=== PATIENT | male | born 1965 | race Caucasian/White ===

== ENCOUNTER 2018-12-24 08:09 | Emergency (ER) | payer OTHER, SELFPAY ==
[2018-12-24 08:16] VITALS: BP 180/88; PULSE 90; RESP 16; TEMP 36.9; O2SAT 94
[2018-12-24 08:17] VITALS: BP 180/88; PULSE 90; RESP 16; TEMP 36.9; O2SAT 94; BMI 41.5
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
== END 2018-12-24 08:45 | disposition home or self-care (01) ==
PROVIDERS: Emergency Provider Emergency Medicine
DX: S06.0X0A Concussion without loss of consciousness, initial encounter (principal); S16.1XXA Strain of muscle, fascia and tendon at neck level, initial encounter; V43.52XA Car driver injured in collision with other type car in traffic accident, initial encounter
CPT/HCPCS: 99282

== ENCOUNTER 2019-08-10 08:20 | Emergency (ER) | payer OTHER, SELFPAY ==
[2019-08-10 08:44] VITALS: BP 172/85; PULSE 100; RESP 14; TEMP 36.4; O2SAT 97
[2019-08-10 09:18] VITALS: BP 144/77; PULSE 88; RESP 18; O2SAT 99
--- NOTE | 2019-08-10 09:34 | PC.NURSE ---
diabetic patient w/ recent high glucose (> 400) wound base of right foot that is > 1.5 cm deep, black center.
--- NOTE | 2019-08-10 09:39 | DI.RAD.S_ITS ---
PROCEDURE: XR FOOT RT MIN 3V INDICATIONS: wound bottom of right foot w/ deep center. Diabetic TECHNIQUE: 3 views of the foot were acquired. COMPARISON: None. FINDINGS: Bones: No fractures or dislocations. No suspicious bony lesions. No plain film evidence of osteomyelitis. Soft tissues: No tibiotalar joint effusion. Achilles tendon appears normal. Plantar ulcer at the level of the PIP joints seen on lateral view. IMPRESSION: Plantar ulcer. No evidence acute bony abnormality of the right foot. If clinical suspicion and/or symptoms persist, further assessment with repeat plain films, or advanced imaging (e.g., CT, MRI, or bone scan) may be helpful for further assessment. Dictated by: Artem Gee M.D. on 08/10/2019 at 9:53 Approved by: Artem Gee M.D. on 08/10/2019 at 9:54
[2019-08-10 09:48] LABS: Add Manual Diff / Slide Review NO; Basophils Absolute Auto 100 /uL (0-100); Basophils Percent Auto 0.8 % (0-2); Eosinophils Absolute Auto 100 /uL (0-450); Eosinophils Percent Auto 0.6 % (2-4); Hematocrit 39.6 % (41-53); Hemoglobin 13.3 g/dL (13.5-17.5); Lymphocytes Absolute Auto 1300 /uL (1100-4500); Lymphocytes Percent Auto 10.8 % (25-40); Mean Corpuscular HGB Conc 33.6 % (30-36); Mean Corpuscular Hemoglobin 30.3 PG (26-34); Mean Corpuscular Volume 90.2 fL (80-100); Monocytes Absolute Auto 900 /uL (0-900); Monocytes Percent Auto 7.4 % (3-14); Neutrophils Absolute Auto 9800 /uL (1500-7000); Neutrophils Percent Auto 80.4 % (50-75); Platelet Count 318 X10^3/uL (150-400); Red Blood Cell Count 4.39 X10^6/uL (4.5-5.9); Red Cell Distribution Width 12.4 % (11.6-14.8); White Blood Cell Count 12.2 X10^3/uL (4.5-11.0)
[2019-08-10 09:58] LABS: Prothrombin Time 11.2 SECONDS (10.1-12.7)
[2019-08-10 10:01] LABS: PTT Partial Thromboplastin Tim 35 SECONDS (26.4-36.2)
[2019-08-10 10:04] LABS: Lactate (Lactic Acid) 1.5 mmol/L (0.7-2.1)
[2019-08-10 10:05] LABS: Alanine Aminotransferase 31 IU/L (<50); Albumin 4.5 g/dL (3.5-5.0); Albumin Globulin Ratio 1.2 (1.0-2.8); Alkaline Phosphatase 96 U/L (38-126); Aspartate Aminotransferase 30 IU/L (17-59); BUN Creatinine Ratio 29.5 (6-22); Bilirubin Total 0.4 mg/dL (0.2-1.3); Blood Urea Nitrogen 38 mg/dL (9-20); Calcium 10.3 mg/dL (8.4-10.2); Carbon Dioxide 24 mmol/L (22-32); Chloride 95 mmol/L (98-107); Erythrocyte Sedimentation Rate 25 MM/HR (0-15); Estimated Glomerular Filt Rate 58.5 mL/min (>60); Globulin 3.9 g/dL (1.7-4.1); Glucose 436 mg/dL (70-100); HEMOLYSIS < 15 (0-50); Lipase 244 U/L (23-300); Sodium 132 mmol/L (137-145); Total Protein 8.4 g/dL (6.3-8.2)
[2019-08-10 10:06] LABS: Potassium 5.5 mmol/L (3.4-5.1)
[2019-08-10 10:21] LABS: Procalcitonin 0.07 ng/mL (<0.5)
[2019-08-10 10:40] LABS: C-Reactive Protein Quant 5.2 mg/dL (<1.0)
--- NOTE | 2019-08-10 11:38 | ED.SKABFB ---
HPI - Skin/Abscess/Foreign Bdy General Chief complaint: Skin/Abscess/Foreign Body Stated complaint: RT FOOT/ BLISTER/PAIN DIABETIC Time Seen by Provider: 08/10/19 09:44 Source: patient Mode of arrival: Ambulatory History of Present Illness HPI narrative: CC: Right foot ulcer HPI: The patient is a 53-year-old male who is a type 2 diabetic. He has an ulcer on the bottom of his right foot over the area of the metatarsophalangeal joint of his 2nd toe that is a deep ulcer. The patient stated that he injured the foot and developed a blister in this area starting in mid May when he was visiting [employer] and was walking 10 miles a day. Since then he has developed swelling of the area of the foot with increased drainage and an ulcer. The patient has mild neuropathy with decreased sensation. He has not had significant pain and discomfort. He has had some local swelling. He states that he has had some. Lint drainage and foul odor. He has never before had an ulcer like this on the bottom of his foot. He admits to history of hypertension diabetes mellitus but denies a history of asthma COPD or myocardial infarction. Is a former smoker and currently does not smoke cigarettes. He does chew tobacco and rarely but occasionally drinks alcohol. He does not use any drugs or marijuana. Related Data Home Medications Medication Instructions Recorded Confirmed glipizide 10 mg PO BID 08/10/19 08/10/19 hydrochlorothiazide 25 mg PO BEDTIME 08/10/19 08/10/19 lisinopril 20 mg PO BEDTIME 08/10/19 08/10/19 metformin 1,000 mg PO BID 08/10/19 08/10/19 Previous Rx's Medication Instructions Recorded doxycycline hyclate 100 mg PO BID #14 tab 08/10/19 ibuprofen 600 mg PO QID PRN #25 tab 08/10/19 Allergies Allergy/AdvReac Type Severity Reaction Status Date / Time hydrocodone [HYDROCODONE] AdvReac Intermediate NAUSEA/VOMI Verified 08/10/19 09:34 TING TEA EXTRACT Allergy Severe VOMITING Uncoded 12/24/18 08:17 Review of Systems Review of Systems Narrative: REVIEW OF SYSTEMS: CONSTITUTIONAL: The patient denies any fever chills or sweats. NEUROLOGICAL: He has had no headaches paresthesias paresis or paralysis. He has had some decreased sensation in his right foot. EENT: He denies any nasal congestion sore throat or dysphagia as well as any diplopia or change in vision. CARDIO-PULMONARY: He denies any chest pain cough shortness of breath palpitations or dizziness. GASTROINTESTINAL: Denies any significant abdominal pain cramps nausea vomiting diarrhea change in bowel habits. GENITAL URINARY: He denies any urinary symptoms. Patient History Medical History Diabetes (Acute) Hypertension (Acute) Social History marital status: lives independently: Yes tobacco type: smokeless tobacco Substance Use Type: does not use Exam Narrative Exam Narrative: PHYSICAL EXAM: CONSTITUTIONAL: Awake, Alert, Oriented, Coherent, Cooperative in NAD. HEAD: AT/NC EENT: PERRL, FROM of eyes,. NECK: Supple, no obvious JVD, Trachea is midline without stridor, no palpable LN. SPINE: Palpationof the cervical, Thoracic, Lumbar or Sacral spine reveals no gross deformity or tenderness. No CVA tenderness. THORAX: No deformity, retractions, chest wall tenderness. LUNGS: Clear, symmetrical breath sounds without respiratory distress. HEART: Normal heart tones, regular rhythm and rate without murmur. ABDOMEN: Soft, non-tender, normal bowel sounds without guarding, rebound, rigidity or palpable mass. EXTREMITIES: The patient has a quarter-size ulcer that looks like a crater over the plantar surface of the right foot over the metatarsophalangeal joint of the 2nd toe. There is some. Went macerated tissue at the base of the ulcer. The margins of the ulcer are moist and hope white to without any erythema or pustular drainage. The rest of the foot is not significantly swollen. The patient has good capillary refill in all of his toes and the dorsalis pedis pulse is 1 +. SKIN: No other rash, bruising, petechiae or purpura noted. NEURO: Awake, alert, oriented, conversive, cranial nerves II-XII are symmetrical , moves all 4 extremities and is ambulatory. Initial Vital Signs Initial Vital Signs: Vital Signs Temperature 97.6 F 08/10/19 08:44 Pulse Rate 100 H 08/10/19 08:44 Respiratory Rate 14 08/10/19 08:44 Blood Pressure 172/85 H 08/10/19 08:44 Pulse Oximetry 97 05/12/20 08:44 Course Course Course Narrative: 1138: X-rays of the foot reveals no fracture malalignment arm no evidence of osteomyelitis. The patient will need to be seen and evaluated by a material distributor for continued arm debridement and evaluation of the foot. The patient will be placed on an antibiotic. Orders Ordered: Discontinued Medications Doxycycline Hyclate (Vibramycin) 100 mg PO NOW ONE Stop: 08/10/19 11:43 Last Admin: 08/10/19 11:48 Dose: 100 mg Documented by: MARGARITO Sodium Chloride (Normal Saline 0.9%) 1,000 mls @ 1,000 mls/hr IV BOLUS ONE Stop: 08/10/19 12:51 Last Infusion: 08/10/19 13:08 Dose: 0 mls/hr Documented by: Admin: 08/10/19 11:58 Dose: 1,000 mls/hr Documented by: MARGARITO Vital Signs Vital signs: Vital Signs - 8 hr 08/10/19 12:04 08/10/19 13:14 Pulse Rate 87 70 Respiratory Rate 16 16 Blood Pressure [Right Arm] 125/72 140/72 Pulse Oximetry 100 99 MDM - Skin/Abscess/Foreign Bdy Lab Data Result diagrams: 08/10/19 09:30 08/10/19 09:30 Labs: Lab Results 08/10/19 08/10/19 08/10/19 Range/Units 09:30 09:30 09:30 WBC 12.2 H (4.5-11.0) X10^3/uL RBC 4.39 L (4.5-5.9) X10^6/uL Hgb 13.3 L (13.5-17.5) g/dL Hct 39.6 L (41-53) % MCV 90.2 (80-100) fL MCH 30.3 (26-34) PG MCHC 33.6 (30-36) % RDW 12.4 (11.6-14.8) % Plt Count 318 (150-400) X10^3/uL Neut % (Auto) 80.4 H (50-75) % Lymph % (Auto) 10.8 L (25-40) % Edgar % (Auto) 7.4 (3-14) % Eos % (Auto) 0.6 L (2-4) % Baso % (Auto) 0.8 (0-2) % Neut # (Auto) 9800 H (3270-3221) /uL Lymph # (Auto) 1300 (7292-5360) /uL Edgar # (Auto) 900 (0-900) /uL Eos # (Auto) 100 (0-450) /uL Baso # (Auto) 100 (0-100) /uL ESR (0-15) MM/HR PT 11.2 (10.1-12.7) SECONDS INR 1.0 (0.9-1.3) APTT 35 (26.4-36.2) SECONDS Sodium (137-145) mmol/L Potassium (3.4-5.1) mmol/L Chloride (98-107) mmol/L Carbon Dioxide (22-32) mmol/L BUN (9-20) mg/dL Creatinine (0.66-1.25) mg/dL Estimated GFR (>60) mL/min BUN/Creatinine Ratio (6-22) Glucose (70-100) mg/dL Lactate (0.7-2.1) mmol/L Calcium (8.4-10.2) mg/dL Total Bilirubin (0.2-1.3) mg/dL AST (17-59) IU/L ALT (<50) IU/L Alkaline Phosphatase (38-126) U/L C-Reactive Protein (<1.0) mg/dL Total Protein (6.3-8.2) g/dL Albumin (3.5-5.0) g/dL Globulin (1.7-4.1) g/dL Albumin/Globulin Ratio (1.0-2.8) Lipase (23-300) U/L Procalcitonin 0.07 (<0.5) ng/mL 08/10/19 08/10/19 08/10/19 Range/Units 09:30 09:30 09:30 WBC (4.5-11.0) X10^3/uL RBC (4.5-5.9) X10^6/uL Hgb (13.5-17.5) g/dL Hct (41-53) % MCV (80-100) fL MCH (26-34) PG MCHC (30-36) % RDW (11.6-14.8) % Plt Count (150-400) X10^3/uL Neut % (Auto) (50-75) % Lymph % (Auto) (25-40) % Edgar % (Auto) (3-14) % Eos % (Auto) (2-4) % Baso % (Auto) (0-2) % Neut # (Auto) (7300-2242) /uL Lymph # (Auto) (6951-2682) /uL Edgar # (Auto) (0-900) /uL Eos # (Auto) (0-450) /uL Baso # (Auto) (0-100) /uL ESR 25 H (0-15) MM/HR PT (10.1-12.7) SECONDS INR (0.9-1.3) APTT (26.4-36.2) SECONDS Sodium 132 L (137-145) mmol/L Potassium 5.5 H (3.4-5.1) mmol/L Chloride 95 L (98-107) mmol/L Carbon Dioxide 24 (22-32) mmol/L BUN 38 H (9-20) mg/dL Creatinine 1.29 H (0.66-1.25) mg/dL Estimated GFR 58.5 L (>60) mL/min BUN/Creatinine Ratio 29.5 H (6-22) Glucose 436 H (70-100) mg/dL Lactate 1.5 (0.7-2.1) mmol/L Calcium 10.3 H (8.4-10.2) mg/dL Total Bilirubin 0.4 (0.2-1.3) mg/dL AST 30 (17-59) IU/L ALT 31 (<50) IU/L Alkaline Phosphatase 96 (38-126) U/L C-Reactive Protein (<1.0) mg/dL Total Protein 8.4 H (6.3-8.2) g/dL Albumin 4.5 (3.5-5.0) g/dL Globulin 3.9 (1.7-4.1) g/dL Albumin/Globulin Ratio 1.2 (1.0-2.8) Lipase 244 (23-300) U/L Procalcitonin (<0.5) ng/mL 08/10/19 Range/Units 09:30 WBC (4.5-11.0) X10^3/uL RBC (4.5-5.9) X10^6/uL Hgb (13.5-17.5) g/dL Hct (41-53) % MCV (80-100) fL MCH (26-34) PG MCHC (30-36) % RDW (11.6-14.8) % Plt Count (150-400) X10^3/uL Neut % (Auto) (50-75) % Lymph % (Auto) (25-40) % Edgar % (Auto) (3-14) % Eos % (Auto) (2-4) % Baso % (Auto) (0-2) % Neut # (Auto) (1961-7512) /uL Lymph # (Auto) (4691-2745) /uL Edgar # (Auto) (0-900) /uL Eos # (Auto) (0-450) /uL Baso # (Auto) (0-100) /uL ESR (0-15) MM/HR PT (10.1-12.7) SECONDS INR (0.9-1.3) APTT (26.4-36.2) SECONDS Sodium (137-145) mmol/L Potassium (3.4-5.1) mmol/L Chloride (98-107) mmol/L Carbon Dioxide (22-32) mmol/L BUN (9-20) mg/dL Creatinine (0.66-1.25) mg/dL Estimated GFR (>60) mL/min BUN/Creatinine Ratio (6-22) Glucose (70-100) mg/dL Lactate (0.7-2.1) mmol/L Calcium (8.4-10.2) mg/dL Total Bilirubin (0.2-1.3) mg/dL AST (17-59) IU/L ALT (<50) IU/L Alkaline Phosphatase (38-126) U/L C-Reactive Protein 5.2 H (<1.0) mg/dL Total Protein (6.3-8.2) g/dL Albumin (3.5-5.0) g/dL Globulin (1.7-4.1) g/dL Albumin/Globulin Ratio (1.0-2.8) Lipase (23-300) U/L Procalcitonin (<0.5) ng/mL Discharge Plan Departure Patient Disposition: Home Clinical Impression: Hyperglycemia Diabetic foot ulcer Qualifiers: Diabetic foot ulcer location: midfoot Diabetes mellitus type: type 2 Laterality: right Non-pressure ulcer stage: with fat layer exposed Qualified Code(s): E11.621 - Type 2 diabetes mellitus with foot ulcer Discharge Date/Time: 08/10/19 13:16 Instructions: DI for Cellulitis -- Adult, DI for Diabetic Foot Ulcer, DI for Hyperglycemia -- Adult, DI for Wound Infection Activity Restrictions/Additional Instructions: 1. You need to follow-up with your primary care physician. Your medications may need to be changed and you may need to be placed on insulin. Your blood sugar is running in the 400 range which will delay healing. 2. You need to follow-up with the material distributor Dr. luis gillette as referred to evaluate her foot ulcer. 3. You currently need to wash your foot in running water and soap pat dry and change the dressing as shown by the nurse. Until you can be seen by your material distributor and he decide how he wants to bandaging care for your foot. If the foot becomes progressively more swollen, red, hot, or you develop a fever you need to return to the emergency department. 4. For pain and discomfort take ibuprofen 600 mg every 6 hours for pain and discomfort. Take the antibiotic doxycycline twice a day as prescribed. Prescriptions: New ibuprofen 600 mg tablet 600 mg PO QID PRN (Reason: pain) Qty: 25 RF: 0 doxycycline hyclate 100 mg tablet 100 mg PO BID Qty: 14 RF: 0 No Action metformin 500 mg tablet 1,000 mg PO BID RF: 0 lisinopril 20 mg tablet 20 mg PO BEDTIME RF: 0 glipizide 10 mg tablet 10 mg PO BID RF: 0 hydrochlorothiazide 25 mg tablet 25 mg PO BEDTIME RF: 0 Referrals: Mj Nobles MD [Primary Care Provider] - Chet Qiu DPM [Physician] - (diabetic foot Ulcer)
[2019-08-10] MEDS: DOXYCYCLINE HYCLATE 100 MG TABLET PO (11:48)
[2019-08-10] MEDS: SODIUM CHLORIDE 0.9% 1,000 ML 1000 ML IV (11:58)
[2019-08-10 12:04] VITALS: BP 125/72; PULSE 87; RESP 16; O2SAT 100
[2019-08-10 13:14] VITALS: BP 140/72; PULSE 70; RESP 16; O2SAT 99
== END 2019-08-10 13:16 | disposition home or self-care (01) ==
PROVIDERS: Emergency Provider Emergency Medicine; PCP Internal Medicine
DX: E11.65 Type 2 diabetes mellitus with hyperglycemia (principal); E11.621 Type 2 diabetes mellitus with foot ulcer; I10 Essential (primary) hypertension
CPT/HCPCS: 36415; 73630; 80053; 83605; 83690; 84145; 85025; 85610; 85651; 85730; 86140; 87070; 87077; 87147; 87205; 96360; 99284

== ENCOUNTER → 2019-08-25 12:11 | Outpatient (CLI) | payer OTHER, SELFPAY | PROVIDERS: PCP Internal Medicine; Referring Provider Podiatrist; Visit Provider Family Medicine | DX: E11.621 Type 2 diabetes mellitus with foot ulcer (principal); L97.511 Non-pressure chronic ulcer of other part of right foot limited to breakdown of skin; E11.40 Type 2 diabetes mellitus with diabetic neuropathy, unspecified | CPT/HCPCS: 11042; 73630; 87070; 87075; 87205; 99203; 99214 ==

== ENCOUNTER → 2019-08-25 12:46 | Outpatient (CLI) | payer OTHER, SELFPAY ==
--- NOTE | 2019-08-25 | DI.RAD.S_ITS ---
PROCEDURE: XR FOOT RT MIN 3V INDICATIONS: right foot ulcer TECHNIQUE: 3 views of the foot were acquired. COMPARISON: [facility], , XR FOOT RT MIN 3V, 08/10/2019, 9:43. FINDINGS: Bones: No fractures or dislocations. No suspicious bony lesions. Soft tissues: No tibiotalar joint effusion. Achilles tendon appears normal. IMPRESSION: No suspicious bony lesions visualized. Although no bony erosions are identified, plain film radiography is relatively insensitive in the acute phases of osteomyelitis and may not demonstrate radiographic changes for 15 days. If acute osteomyelitis is of clinical concern, nuclear medicine regional bone scan or MRI is recommended. Dictated by: Lillian Nicholson M.D. on 08/25/2019 at 17:10 Approved by: Lillian Nicholson M.D. on 08/25/2019 at 17:10
== END ==
PROVIDERS: PCP Internal Medicine; Referring Provider Family Medicine; Visit Provider Family Medicine
DX: E11.621 Type 2 diabetes mellitus with foot ulcer (principal); L97.511 Non-pressure chronic ulcer of other part of right foot limited to breakdown of skin
CPT/HCPCS: 73630

== ENCOUNTER → 2019-08-30 15:32 | Outpatient (CLI) | payer OTHER, SELFPAY | PROVIDERS: PCP Internal Medicine; Referring Provider Internal Medicine; Visit Provider Family Medicine | DX: E11.621 Type 2 diabetes mellitus with foot ulcer (principal); L97.515 Non-pressure chronic ulcer of other part of right foot with muscle involvement without evidence of necrosis; E11.40 Type 2 diabetes mellitus with diabetic neuropathy, unspecified | CPT/HCPCS: 11042 ==

== ENCOUNTER → 2019-09-06 13:59 | Outpatient (CLI) | payer OTHER, SELFPAY | PROVIDERS: PCP Internal Medicine; Referring Provider Internal Medicine; Visit Provider Family Medicine | DX: E11.621 Type 2 diabetes mellitus with foot ulcer (principal); L97.515 Non-pressure chronic ulcer of other part of right foot with muscle involvement without evidence of necrosis; E11.40 Type 2 diabetes mellitus with diabetic neuropathy, unspecified | CPT/HCPCS: 11042; 87070; 87075; 87077; 87147; 87186; 87205 ==

== ENCOUNTER → 2019-09-13 09:26 | Outpatient (CLI) | payer OTHER, SELFPAY | PROVIDERS: PCP Internal Medicine; Referring Provider Internal Medicine; Visit Provider Family Medicine | DX: E11.621 Type 2 diabetes mellitus with foot ulcer (principal); L97.511 Non-pressure chronic ulcer of other part of right foot limited to breakdown of skin; E11.40 Type 2 diabetes mellitus with diabetic neuropathy, unspecified; B95.7 Other staphylococcus as the cause of diseases classified elsewhere; B95.1 Streptococcus, group B, as the cause of diseases classified elsewhere; L08.9 Local infection of the skin and subcutaneous tissue, unspecified | CPT/HCPCS: 11042; 99214 ==

== ENCOUNTER → 2019-09-20 14:36 | Outpatient (CLI) | payer OTHER, SELFPAY | PROVIDERS: PCP Internal Medicine; Referring Provider Internal Medicine; Visit Provider Family Medicine | DX: E11.621 Type 2 diabetes mellitus with foot ulcer (principal); L97.511 Non-pressure chronic ulcer of other part of right foot limited to breakdown of skin | CPT/HCPCS: 11042 ==

== ENCOUNTER → 2019-09-27 15:03 | Outpatient (CLI) | payer OTHER, SELFPAY | PROVIDERS: PCP Internal Medicine; Referring Provider Internal Medicine; Visit Provider Family Medicine | DX: E11.621 Type 2 diabetes mellitus with foot ulcer (principal); L97.512 Non-pressure chronic ulcer of other part of right foot with fat layer exposed | CPT/HCPCS: 11042 ==

== ENCOUNTER → 2019-10-04 14:44 | Outpatient (CLI) | payer OTHER, SELFPAY | PROVIDERS: PCP Internal Medicine; Referring Provider Internal Medicine; Visit Provider Family Medicine | DX: E11.621 Type 2 diabetes mellitus with foot ulcer (principal); L97.512 Non-pressure chronic ulcer of other part of right foot with fat layer exposed | CPT/HCPCS: 11042; 99213 ==

== ENCOUNTER → 2019-10-11 15:57 | Outpatient (CLI) | payer OTHER, SELFPAY | PROVIDERS: PCP Internal Medicine; Referring Provider Internal Medicine; Visit Provider Family Medicine | DX: E11.621 Type 2 diabetes mellitus with foot ulcer (principal); L97.512 Non-pressure chronic ulcer of other part of right foot with fat layer exposed | CPT/HCPCS: 15275; Q4110 ==

== ENCOUNTER → 2019-10-18 14:34 | Outpatient (CLI) | payer OTHER, SELFPAY | PROVIDERS: PCP Internal Medicine; Referring Provider Internal Medicine; Visit Provider Family Medicine | DX: E11.621 Type 2 diabetes mellitus with foot ulcer (principal); L97.511 Non-pressure chronic ulcer of other part of right foot limited to breakdown of skin | CPT/HCPCS: 15275; Q4137 ==

== ENCOUNTER → 2019-10-25 11:43 | Outpatient (CLI) | payer OTHER, SELFPAY | PROVIDERS: PCP Internal Medicine; Referring Provider Internal Medicine; Visit Provider Family Medicine | DX: E11.621 Type 2 diabetes mellitus with foot ulcer (principal); L97.511 Non-pressure chronic ulcer of other part of right foot limited to breakdown of skin | CPT/HCPCS: 97597; 99213 ==

== ENCOUNTER → 2019-11-01 15:08 | Outpatient (CLI) | payer OTHER, SELFPAY | PROVIDERS: PCP Internal Medicine; Referring Provider Internal Medicine; Visit Provider Family Medicine | DX: E11.43 Type 2 diabetes mellitus with diabetic autonomic (poly)neuropathy (principal); Z48.01 Encounter for change or removal of surgical wound dressing | CPT/HCPCS: 99212; 99213 ==

== ENCOUNTER 2023-04-27 13:56 | Emergency (ER) | payer OTHER, SELFPAY ==
[2023-04-27 14:04] VITALS: BP 118/72; PULSE 74; RESP 18; TEMP 36.6; O2SAT 97; BMI 40.4
--- NOTE | 2023-04-27 14:58 | ED.WOUNDLAC ---
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 Patient was using a automatic monty grinding a piece of metal with a metal got caught and drags his left hand into the monty. Patient has extensive wounds to the left knuckles. Full flexion-extension of the fingers and hands. Tetanus is not up-to-date. Related Data Home Medications Medication Instructions Recorded Confirmed glipizide 10 mg tablet 10 mg PO BID 08/10/19 08/10/19 hydrochlorothiazide 25 mg tablet 25 mg PO BEDTIME 08/10/19 08/10/19 lisinopril 20 mg tablet 20 mg PO BEDTIME 08/10/19 08/10/19 metformin 500 mg tablet 1,000 mg PO BID 08/10/19 08/10/19 Previous Rx's Medication Instructions Recorded doxycycline hyclate 100 mg tablet 100 mg PO BID #14 tabs 08/10/19 ibuprofen 600 mg tablet 600 mg PO QID PRN pain #25 tabs 08/10/19 cephalexin 500 mg capsule 500 mg PO QID #28 caps 04/27/23 Allergies Allergy/AdvReac Type Severity Reaction Status Date / Time hydrocodone [HYDROCODONE] AdvReac Intermediate NAUSEA/VOMI Verified 04/27/23 14:11 TING TEA EXTRACT Allergy Severe VOMITING Uncoded 12/24/18 08:17 Review of Systems <Enrique Xiao PA-C - Last Filed: 04/27/23 16:32> Review of Systems Narrative: GENERAL: Denies chills, fatigue, malaise, fever, sweats. HEENT: Denies sinus pain, ear pain, sore throat, difficulty swallowing, dizziness. RESPIRATORY: Denies dyspnea, cough, wheezing, hemoptysis, sputum. CARDIOVASCULAR: Denies chest pain, palpitations, orthopnea, edema, GASTROINTESTINAL: Denies nausea, vomiting, abdominal pain, diarrhea, constipation, melena. : Denies dysuria, frequency, incontinence, hematuria, urinary retention. MUSCULOSKELETAL: denies weakness, joint pain, or bony pain SKIN: Left finger and hand wounds NEUROLOGIC: Denies weakness, headache, numbness, change in speech, confusion, seizures, incoordination. PSYCHIATRIC: No concerning psychosocial issues. 12 point review of systems is negative except for those stated above Patient History <Enrique Xiao PA-C - Last Filed: 04/27/23 16:32> Medical History (Updated 04/27/23 @ 16:31 by Enrique Xiao PA-C) Hypertension Diabetes Social History marital status: lives independently: Yes Smoking Status: Never smoker Smoking Status: Never smoker tobacco type: smokeless tobacco alcohol intake frequency: a few times a week Substance Use Type: does not use Exam <Enrique Xiao PA-C - Last Filed: 04/27/23 16:32> Narrative Exam Narrative: GENERAL: Well-developed patient, in mild distress. HEAD: Atraumatic. Normocephalic. EYES: Pupils equal round and reactive. Extraocular motions intact. No scleral icterus. No injection or drainage. ENT: Nose without bleeding, purulent drainage. Throat without erythema, tonsillar hypertrophy or exudate. Airway patent. NECK: Trachea midline. Non tender EXTREMITIES: No edema or joint tenderness. Full range of motion of the fingers and hand. No tenderness to palpation to any of the bony areas of the hand. NEURO: AOx3. SKIN: 2 cm Laceration to the PIP joint of the left 3rd digit. 2.5 cm Laceration to the palmar aspect of the pinky as well. Wounds to multiple areas of the knuckles and hand. Initial Vital Signs Initial Vital Signs: Vital Signs Temperature 97.9 F 04/27/23 14:04 Pulse Rate 74 04/27/23 14:04 Respiratory Rate 18 04/27/23 14:04 Blood Pressure 118/72 04/27/23 14:04 Pulse Oximetry 97 04/27/23 14:04 Oxygen Delivery Method Room Air 04/27/23 14:04 <Ceasar Brambila DO - Last Filed: 04/27/23 16:59> Initial Vital Signs Initial Vital Signs: Vital Signs Temperature 97.9 F 04/27/23 14:04 Pulse Rate 74 04/27/23 14:04 Respiratory Rate 18 04/27/23 14:04 Blood Pressure 118/72 04/27/23 14:04 Pulse Oximetry 97 04/27/23 14:04 Oxygen Delivery Method Room Air 04/27/23 14:04 Procedures <Enrique Xiao PA-C - Last Filed: 04/27/23 16:32> Laceration Repair Laceration 1: Time of procedure: 16:25 Site: other (L 3rd finger) Side (If applicable): left Size (cm): 2 Description: linear Depth: simple, single layer Local Anesthetic: lidocaine 1% and with epi Amount of anesthesia used (mL): 4 Pre-repair: wound explored and irrigated extensively Skin layer closed with: nylon Skin layer suture size: 5-0 Number of sutures: 3 Technique: simple, interrupted Laceration 2: Time of procedure: 16:27 Site: hand (L 5th digit ) Side (If applicable): left Size (cm): 2.5 Description: linear Depth: simple, single layer Local Anesthetic: lidocaine 1% and with epi Amount of anesthesia used (mL): 4 Pre-repair: wound explored and irrigated extensively Skin layer closed with: nylon Skin layer suture size: 5-0 Number of sutures: 4 Technique: simple, interrupted Course <RICARDO Cruz Last Filed: 04/27/23 16:32> Orders Ordered: Discontinued Medications Diphtheria/Tetanus/Acell Pertussis (Tet,Diph,Pertuss(Acell),Vac/Pf 0.5 Ml Syringe) 0.5 ml IM .ONCE ONE Stop: 04/27/23 14:13 Last Admin: 04/27/23 15:38 Dose: 0.5 ml Documented By: RLS Vital Signs Vital signs: Vital Signs - 8 hr 04/27/23 14:04 04/27/23 16:38 Temperature 97.9 F Pulse Rate 74 75 Respiratory Rate 18 18 Blood Pressure 118/72 140/67 Pulse Oximetry 97 99 Oxygen Delivery Method Room Air Room Air <Ceasar Brambila DO - Last Filed: 04/27/23 16:59> Orders Ordered: Discontinued Medications Diphtheria/Tetanus/Acell Pertussis (Tet,Diph,Pertuss(Acell),Vac/Pf 0.5 Ml Syringe) 0.5 ml IM .ONCE ONE Stop: 04/27/23 14:13 Last Admin: 04/27/23 15:38 Dose: 0.5 ml Documented By: RLS Vital Signs Vital signs: Vital Signs - 8 hr 04/27/23 14:04 04/27/23 16:38 Temperature 97.9 F Pulse Rate 74 75 Respiratory Rate 18 18 Blood Pressure 118/72 140/67 Pulse Oximetry 97 99 Oxygen Delivery Method Room Air Room Air MDM - Wound/Laceration <Enrique Xiao PA-C - Last Filed: 04/27/23 16:32> [facility] Narrative Medical decision making narrative: ED course: This is a 57-year-old male presents to the emergency department due to a left hand injury. Patient declined x-rays although he did the note that he did not have any tenderness to palpation surrounding any joints in the hand. Patient had 2 lacerations to his fingers that needed suture repair which was done so without complications. He would full range of motion to all his fingers and hands and low concern for any kind of tendon injury. The remaining of the wounds were dressed using Xeroform and dry gauze. 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 CC: Left hand injury Complicating co-morbidities: Diabetes Data collected from: Previous notes Medical records reviewed: Patient was last seen here 3-1/2 years ago due to a diabetic foot ulcer. History of diabetes, hypertension, Differential considered, but not limited to: Fracture, tendon injury, soft tissue injury Exam documented above, pertinent findings include: No decreased range of motion to the fingers or hands Lab Test results independently reviewed as above. Pertinent findings: None obtained Imaging studies independently reviewed: None obtained Scores Used: None MIPS Elements: None Consultations: None Treatments: Sutures and laceration repair Re-evaluations: None Discussion: Discussed plan with the patient was comfortable with the plan Diagnosis: Left hand injury Disposition: see below, along with detailed discharge instructions that have been reviewed with patient as well as indications for ED re-evaluation and additional outpatient follow up Discharge Plan Departure Patient Disposition: Home Clinical Impression: Injury of hand, left Instructions: DI for Laceration Repair Activity Restrictions/Additional Instructions: Thank you for coming to the [facility] Emergency Department today. I am glad that we are able to close up the wounds. Please take the oral antibiotics to avoid any infections. Please continue to monitor the wounds for any signs of infection. Sutures should be removed in 7-10 days by your primary care provider or walk-in clinic. Please return to the emergency department if you develop any fevers, redness spreading of the fingers or hands, or any other concerning signs or symptoms. I hope you feel better soon. Please follow up with your primary care provider within a week if your symptoms continue. If you do not have a primary care provider please contact the [facility] Resource line at [phone]. They will ask some questions about your medical history and help you get set up with a provider in the community. Prescriptions: New cephalexin 500 mg capsule 500 mg PO QID Qty: 28 0RF No Action metformin 500 mg tablet 1,000 mg PO BID lisinopril 20 mg tablet 20 mg PO BEDTIME glipizide 10 mg tablet 10 mg PO BID hydrochlorothiazide 25 mg tablet 25 mg PO BEDTIME ibuprofen 600 mg tablet 600 mg PO QID PRN (Reason: pain) Qty: 25 0RF doxycycline hyclate 100 mg tablet 100 mg PO BID Qty: 14 0RF Referrals: Mj Nobles MD [Primary Care Provider] - Stand Alone Forms: Patient Portal/API ED Sign-out <Ceasar Brambila, DO - Last Filed: 04/27/23 16:59> [facility]: Dr Brambila Co-Sign Statement: I was available for consultation during this patient's emergency department visit. This chart is signed by myself for administrative purposes only. I did not have direct contact with this patient during this visit. They were seen independently by the APC.
[2023-04-27] MEDS: TET,DIPH,PERTUSS(ACELL),VAC/PF 0.5 ML SYRINGE IM (15:38)
--- NOTE | 2023-04-27 16:05 | PC.NURSE ---
Addendum entered by Brenna Weber R.N. 04/27/23 16:10: has patient's wedding band in her purse. Original Note: left hand good radial pulses . able to move fingertip nailbeds sliced across. missing part of pinky tip. bleeding controlled.
[2023-04-27 16:38] VITALS: BP 140/67; PULSE 75; RESP 18; O2SAT 99
== END 2023-04-27 16:41 | disposition home or self-care (01) ==
PROVIDERS: Emergency Provider Physician Assistant Medical; PCP Internal Medicine
DX: S61.412A Laceration without foreign body of left hand, initial encounter (principal); X58.XXXA Exposure to other specified factors, initial encounter; Z23 Encounter for immunization
CPT/HCPCS: 12002; 90471; 99283; 90715

== ENCOUNTER 2023-05-04 08:03 | Emergency (ER) | payer OTHER, SELFPAY ==
--- NOTE | 2023-05-04 08:05 | ED.GENADULT ---
HPI - General Adult General Chief complaint: Recheck/Abnormal Lab/Rx Stated complaint: needs stitches removed Time Seen by Provider: 05/04/23 08:05 Source: patient Mode of arrival: Ambulatory Limitations: no limitations History of Present Illness HPI narrative: Patient is a 57-year-old male. Approximately 1 week after sustaining lacerations to his left hand from a industrial monty. He had 7 stitches placed from the walk-in clinic. Since that time he has been keeping it covered with a bandage she comes in today to have the stitches removed. Related Data Home Medications Medication Instructions Recorded Confirmed glipizide 10 mg tablet 10 mg PO BID 08/10/19 08/10/19 hydrochlorothiazide 25 mg tablet 25 mg PO BEDTIME 08/10/19 08/10/19 lisinopril 20 mg tablet 20 mg PO BEDTIME 08/10/19 08/10/19 metformin 500 mg tablet 1,000 mg PO BID 08/10/19 08/10/19 Previous Rx's Medication Instructions Recorded doxycycline hyclate 100 mg tablet 100 mg PO BID #14 tabs 08/10/19 ibuprofen 600 mg tablet 600 mg PO QID PRN pain #25 tabs 08/10/19 cephalexin 500 mg capsule 500 mg PO QID #28 caps 04/27/23 Allergies Allergy/AdvReac Type Severity Reaction Status Date / Time hydrocodone [HYDROCODONE] AdvReac Intermediate NAUSEA/VOMI Verified 04/27/23 14:11 TING TEA EXTRACT Allergy Severe VOMITING Uncoded 12/24/18 08:17 Review of Systems Musculoskeletal Musculoskeletal: Reports system reviewed and no additional complaints, except as documented Integumentary/Breasts Skin/Breast: Reports system reviewed and no additional complaints, except as documented Patient History Medical History Hypertension Diabetes Social History marital status: lives independently: Yes Smoking Status: Never smoker Smoking Status: Never smoker tobacco type: smokeless tobacco alcohol intake frequency: a few times a week Substance Use Type: does not use Exam Initial Vital Signs Initial Vital Signs: Vital Signs Temperature 98.1 F 05/04/23 08:09 Pulse Rate 82 05/04/23 08:09 Respiratory Rate 16 05/04/23 08:09 Blood Pressure 170/95 H 05/04/23 08:09 Pulse Oximetry 98 05/04/23 08:09 Oxygen Delivery Method Room Air 05/04/23 08:09 Skin Other: Patient has multiple wounds on the fingers of his left hand. The wounds on his little finger and ring finger do appear to have been covered with a bandage and Xeroform gauze. There was some maceration of the skin. There was no signs of infection. Wounds have closed with stitches appear well. No signs of infection. Course Vital Signs Vital signs: Vital Signs - 8 hr 05/04/23 08:09 Temperature 98.1 F Pulse Rate 82 Respiratory Rate 16 Blood Pressure 170/95 H Pulse Oximetry 98 Oxygen Delivery Method Room Air Medical Decision Making MDM Narrative Medical decision making narrative: Total of 7 stitches were removed from lacerations that appear well. They do appear to be healing. It does look like his and has been in prolonged moisture. It discuss this with him. Advised that he keep it out of the Xeroform gauze in the moisture to allow it to heal and dry. Will discharge home with continued wound care. He was given return precautions. He expressed understanding and agreement. Discharge Plan Departure Patient Disposition: Home Clinical Impression: Encounter for removal of sutures Activity Restrictions/Additional Instructions: The wounds are healing well. Recommend that you try to keep the wounds dry. Use topical antibiotic ointment and bandages as needed. Return to the emergency department for new symptoms Prescriptions: No Action metformin 500 mg tablet 1,000 mg PO BID lisinopril 20 mg tablet 20 mg PO BEDTIME glipizide 10 mg tablet 10 mg PO BID hydrochlorothiazide 25 mg tablet 25 mg PO BEDTIME ibuprofen 600 mg tablet 600 mg PO QID PRN (Reason: pain) Qty: 25 0RF doxycycline hyclate 100 mg tablet 100 mg PO BID Qty: 14 0RF cephalexin 500 mg capsule 500 mg PO QID Qty: 28 0RF Referrals: Mj Nobles MD [Primary Care Provider] - Stand Alone Forms: Patient Portal/API
[2023-05-04 08:09] VITALS: BP 170/95; PULSE 82; RESP 16; TEMP 36.7; O2SAT 98; BMI 39.1
== END 2023-05-04 08:25 | disposition home or self-care (01) ==
PROVIDERS: Emergency Provider Emergency Medicine; PCP Internal Medicine
DX: S61.211D Laceration without foreign body of left index finger without damage to nail, subsequent encounter (principal); S61.215D Laceration without foreign body of left ring finger without damage to nail, subsequent encounter; W31.2XXD Contact with powered woodworking and forming machines, subsequent encounter
CPT/HCPCS: 99281; 99282